=== PATIENT | female | born 1980 | race American Indian/Alaskan Native ===

== ENCOUNTER 2020-10-24 08:08 | Day surgery (SDC) | payer BC ==
[~2020-10-24 08:08] MED LIST: Albuterol 0.083% 2.5 MG/3 ML Neb Soln NEB PRN; HYDROmorphone 1 MG/ML Syringe IVPUSH PRN; Lactated Ringers 1,000 ML IV SCH; Metoclopramide 10 MG/2 ML SDV IVPUSH PRN; Morphine 2 MG/ML SYRINGE IVPUSH PRN; Naloxone 0.4 MG/ML Syringe IVPUSH PRN; Ondansetron 4 MG/2 ML SDV IVPUSH PRN; ceFAZolin 2 GM in Premix Bag 1 BAG IV ONE; fentaNYL 100 MCG/2 ML SDV IVPUSH PRN
[2020-10-24] MEDS ORDERED: Ondansetron 4 MG/2 ML SDV ONE (09:12)
[2020-10-24] MEDS ORDERED: Lidocaine 2% 5 ML SDV ONE (09:12)
[2020-10-24] MEDS ORDERED: Propofol 200 MG/20 ML SDV ONE (09:12)
[2020-10-24] MEDS ORDERED: Midazolam 1 MG/ML 2 ML SDV ONE (09:13)
[2020-10-24] MEDS ORDERED: fentaNYL 100 MCG/2 ML SDV ONE ×2 (09:13→11:14)
[2020-10-24] MEDS ORDERED: Scopolamine 1.5 MG Transdermal Patch ONE (09:25)
--- NOTE | 2020-10-24 09:29 | PCM.PREANE ---
Preanesthetic Assessment - Anesthesia/Transfusion/Family Hx Anesthesia History: Prior Anesthesia Without Reaction Family History of Anesthesia Reaction: No Transfusion History: No Prior Transfusion(s) - Review of Systems General: No Symptoms Pulmonary: No Symptoms Cardiovascular: No Symptoms Gastrointestinal: No Symptoms Neurological: No Symptoms Other: Reports: None - Physical Assessment NPO Status Date: 10/24/20 NPO Status Time: 00:00 Vital Signs: Last Vital Signs Temp 97.3 F 10/24/20 08:16 Pulse 85 10/24/20 08:16 Resp 15 10/24/20 08:16 BP 153/80 H 10/24/20 08:16 Pulse Ox 99 10/24/20 08:16 Height: 5 ft 6 in Weight: 190 lb ASA Class: 3 Mental Status: Alert & Oriented x3 Airway Class: Mallampati = 2 Dentition: Reports: Normal Dentition, Mcintire(s) Thyro-Mental Finger Breadths: 3 Mouth Opening Finger Breadths: 3 ROM/Head Extension: Full Lungs: Clear to Auscultation, Normal Respiratory Effort Cardiovascular: Regular Rate, Regular Rhythm - Lab Values: Laboratory Last Values POC Glucose 179 mg/dL (70-99) H 10/24/20 08:59 Urine HCG, Qual NEGATIVE (NEGATIVE) 10/24/20 08:20 - Allergies Allergies/Adverse Reactions: Allergies Allergy/AdvReac Type Severity Reaction Status Date / Time No Known Allergies Allergy Verified 10/22/20 10:39 - Acknowledgements Anesthesia Type Planned: General Anesthesia Pt an Appropriate Candidate for the Planned Anesthesia: Yes Alternatives and Risks of Anesthesia Discussed w Pt/Guardian: Yes Pt/Guardian Understands and Agrees with Anesthesia Plan: Yes PreAnesthesia Questionnaire HEENT History: Reports: Other (See Below) Other HEENT History: wears glasses/contacts Cardiovascular History: Reports: High Cholesterol, Hypertension Respiratory History: Reports: None Gastrointestinal History: Reports: GERD Genitourinary History: Reports: Chronic Renal Insuffiency Musculoskeletal History: Reports: None Neurological History: Reports: None Psychiatric History: Reports: None Endocrine/Metabolic History: Reports: Diabetes, Type II, Obesity/BMI 30+ Hematologic History: Reports: Iron Deficiency Immunologic History: Reports: None Oncologic (Cancer) History: Reports: None Dermatologic History: Reports: Other (See Below) Other Dermatologic History: chronic ulcer to left great toe - Past Surgical History Head Surgeries/Procedures: Reports: None HEENT Surgical History: Reports: Tonsillectomy Cardiovascular Surgical History: Reports: None Respiratory Surgical History: Reports: None GI Surgical History: Reports: Appendectomy Female Surgical History: Reports: None Endocrine Surgical History: Reports: None Neurological Surgical History: Reports: None Other Musculoskeletal Surgeries/Procedures:: right foot surgery Oncologic Surgical History: Reports: None Dermatological Surgical History: Reports: None - SUBSTANCE USE Tobacco Use Status *Q: Light Tobacco User Tobacco Use Within Last Twelve Months: Cigarettes - HOME MEDS Home Medications: Home Meds Ferrous Sulfate 325 mg PO BID 10/22/20 [History] Fish Oil/[place]-3 Fatty Acids [Fish Oil 1,000 MG] 1,000 mg PO DAILY 10/22/20 [History] Magnesium Oxide 400 mg PO DAILY 10/22/20 [History] Metoprolol Succinate [Toprol Xl] 50 mg PO DAILY 10/22/20 [History] Olmesartan Medoxomil 5 mg PO DAILY 10/22/20 [History] Omeprazole 20 mg PO DAILY 10/22/20 [History] Semaglutide [Ozempic] 0.25 mg SUBCUT WEEKLY 10/22/20 [History] atorvaSTATin Calcium [Atorvastatin Calcium] 10 mg PO DAILY 10/22/20 [History] metFORMIN HCl [Metformin HCl ER] 500 mg PO ACDINNER 10/22/20 [History] metFORMIN HCl [Metformin HCl] 1,000 mg PO ACBREAKFAST 10/22/20 [History] polyethylene glycoL 3350 [MiraLAX] 1 dose PO ASDIRECTED PRN 10/22/20 [History] - CURRENT (IN HOUSE) MEDS Current Meds: Current Medications Albuterol (Albuterol 0.083% 2.5 Mg/3 Ml Neb Soln) 2.5 mg NEB ONETIME PRN PRN Reason: Wheezing Droperidol (Droperidol 5 Mg/2 Ml Sdv) 0.625 mg IVPUSH ONETIME PRN PRN Reason: Nausea/Vomiting Fentanyl (Fentanyl 100 Mcg/2 Ml Sdv) 50 mcg IVPUSH Q5M PRN PRN Reason: Pain (mild 1-3) Hydromorphone HCl (Hydromorphone 1 Mg/Ml Syringe) 1 mg IVPUSH Q10M PRN PRN Reason: Pain (moderate 4-6) Lactated Ringer's (Ringers, Lactated) 1,000 mls @ 125 mls/hr IV ASDIRECTED MARLO Last Admin: 10/24/20 08:30 Dose: 125 mls/hr Documented by: Metoclopramide HCl (Metoclopramide 10 Mg/2 Ml Sdv) 10 mg IVPUSH ONETIME PRN PRN Reason: Nausea/Vomiting Morphine Sulfate (Morphine 2 Mg/Ml Syringe) 2 mg IVPUSH Q10M PRN PRN Reason: Pain (severe 7-10) Naloxone HCl (Naloxone 0.4 Mg/Ml Syringe) 0.1 mg IVPUSH ASDIRECTED PRN PRN Reason: Respiratory Depression Ondansetron HCl (Ondansetron 4 Mg/2 Ml Sdv) 4 mg IVPUSH ONETIME PRN PRN Reason: Nausea/Vomiting Discontinued Medications Fentanyl (Fentanyl 100 Mcg/2 Ml Sdv) Confirm Administered Dose 100 mcg .ROUTE .STK-MED ONE Stop: 10/24/20 09:14 Cefazolin Sodium/Dextrose 2 gm (/ Premix) 50 mls @ 100 mls/hr IV ONETIME ONE Stop: 10/23/20 23:18 Lidocaine (Lidocaine 2% 5 Ml Sdv) Confirm Administered Dose 5 ml .ROUTE .STK-MED ONE Stop: 10/24/20 09:13 Midazolam HCl (Midazolam 1 Mg/Ml 2 Ml Sdv) Confirm Administered Dose 2 mg .ROUTE .STK-MED ONE Stop: 10/24/20 09:14 Ondansetron HCl (Ondansetron 4 Mg/2 Ml Sdv) Confirm Administered Dose 4 mg .ROUTE .STK-MED ONE Stop: 10/24/20 09:13 Propofol (Propofol 200 Mg/20 Ml Sdv) Confirm Administered Dose 200 mg .ROUTE .STK-MED ONE Stop: 10/24/20 09:13 Scopolamine (Scopolamine 1.5 Mg Transdermal Patch) Confirm Administered Dose 1.5 mg .ROUTE .STK-MED ONE Stop: 10/24/20 09:26
[2020-10-24] MEDS ORDERED: Bupivacaine 25%/EPINEPHrine/PF 30 ML ONE (10:12)
[2020-10-24] MEDS ORDERED: ceFAZolin 1 GM Vial ONE (10:48)
[2020-10-24] MEDS ORDERED: Bupivacaine 0.5% 30 ML SDV ONE (11:02)
[2020-10-24] MEDS ORDERED: ePHEDrine 50 MG/ML SDV ONE (11:21)
[2020-10-24] MEDS ORDERED: Sodium Chloride 0.9% 20 ML ONE (11:21)
--- NOTE | 2020-10-24 12:30 | PCM48HPAN ---
Post Anesthesia Note - EVALUATION WITHIN 48HRS OF ANESTHETIC Vital Signs in Normal Range: Yes Patient Participated in Evaluation: Yes Respiratory Function Stable: Yes Airway Patent: Yes Cardiovascular Function Stable: Yes Hydration Status Stable: Yes Pain Control Satisfactory: Yes Nausea and Vomiting Control Satisfactory: Yes Mental Status Recovered: Yes Vital Signs: Last Vital Signs Temp 97.3 F 10/24/20 12:20 Pulse 75 10/24/20 12:25 Resp 26 H 10/24/20 12:25 BP 137/72 10/24/20 12:25 Pulse Ox 96 10/24/20 12:25
--- NOTE | 2020-10-24 12:30 | PCM.POSTAN ---
POST ANESTHESIA ASSESSMENT - MENTAL STATUS Mental Status: Somnolent - VITAL SIGNS Vital Signs: Last Vital Signs Temp 97.3 F 10/24/20 12:20 Pulse 75 10/24/20 12:25 Resp 26 H 10/24/20 12:25 BP 137/72 10/24/20 12:25 Pulse Ox 96 10/24/20 12:25 - RESPIRATORY Respiratory Status: Respiratory Rate WNL, Airway Patent, O2 Saturation Stable - CARDIOVASCULAR CV Status: Pulse Rate WNL, Blood Pressure Stable - GASTROINTESTINAL GI Status: No Symptoms - POST OP HYDRATION Hydration Status: Adequate & Stable
--- NOTE | 2020-10-24 12:48 | PN ---
PREOPERATIVE PROGRESS NOTE: DATE OF SURGERY: October 24, 2020. PLANNED PROCEDURE: Excision of accessory bone, left great toe. ALLERGIES: The patient has no allergies. PAST MEDICAL HISTORY: Significant for asthma, essential hypertension, type 2 diabetes mellitus, and dyslipidemia. MEDICATIONS: Atorvastatin 10 mg 1 tablet daily, ferrous sulfate 325 mg before meals 1 tablet by mouth twice a day for iron, fish oil 1000 mg 1 tablet daily, magnesium oxide 400 mg 1 tablet daily, metformin hydrochloride 500 mg 2 tablets by mouth daily, metoprolol 1 tablet daily and that is 50 mg, olmesartan 5 mg 1 tablet daily, omeprazole 20 mg daily, Ozempic inject 0.25/0.5 mg under the skin with 0.25 mg weekly, and polyethylene glycol 3350 powder dissolve 17 g mixed in 8 ounces of water and drink daily. Labs including BMP, CBC, PT, INR unremarkable. The patient was cleared for surgery by Dr. Ben Harris. No contraindications to surgery noted. The patient has provided written consent for the planned procedure. All risks and benefits have been discussed. No guarantees expressed or implied. ROJELIO AREVALO /[id number] MTDEliezer
--- NOTE | 2020-10-24 19:09 | PCM.OPNOTE ---
- General Post-Op/Procedure Note Date of Surgery/Procedure: 10/24/20 Operative Procedure(s): excision of accessory bone left great toe Findings: consistent with diagnosis Pre Op Diagnosis: accessory bone left great toe Post-Op Diagnosis: accessory bone left great toe Anesthesia Technique: General LMA Primary Surgeon: Deni Culver Pathology: fragments of accessory bone left great toe EBL in mLs: 5 Complications: none Condition: Good Free Text/Narrative:: Intake & Output 10/24/20 10/24/20 10/24/20 06:59 14:59 22:59 Intake Total 1050 Balance 1050 materials: 4-0 vicryl 2-0 prolene injectables: 5 ml 0.5% marcaine plain
--- NOTE | 2020-10-24 22:58 | OR ---
SURGEON: Deni Culevr DPM DATE OF PROCEDURE: 10/24/2020 PREOPERATIVE DIAGNOSIS: Accessory bone, left great toe. POSTOPERATIVE DIAGNOSIS: Accessory bone, left great toe. OPERATIVE PROCEDURE: Excision of accessory bone, left great toe. FINDINGS: Consistent with diagnosis. ANESTHESIA: General LMA. PATHOLOGY: Fragments of accessory bone, left great toe. HEMOSTASIS: Above-ankle pneumatic tourniquet inflated to a pressure of 250 mmHg. ESTIMATED BLOOD LOSS: 5 mL. INJECTABLES: 5 mL of 0.5% Marcaine plain. COMPLICATIONS: None. CONDITION: The patient tolerated the procedure and anesthesia well with no complications noted and there was a prompt hyperemic response to all toes of the left foot following deflation of the tourniquet. MATERIALS: 4-0 Vicryl, 2-0 Prolene. JUSTIFICATION FOR PROCEDURE: The patient is a well-established patient of [facility] with a long history of diabetic foot complications and has become a well-controlled diabetic overall in the last 2 years. Despite this, she has developed an ulcer on the plantar aspect of her left great toe. Further investigation revealed an accessory bone in the plantar interphalangeal joint area of the left great toe, which correlates exactly with the location of the ulcer she developed and has failed to heal despite periods of nonweightbearing and offloading through various means; therefore, patient was recommended by me and agreed to the surgical option of excising this accessory bone. All patient questions have been asked and answered. Risks and benefits were thoroughly discussed and no guarantees expressed or implied. Written consent was obtained from the patient for the procedure. PROCEDURE IN DETAIL: The patient was brought to the operating room, placed on the operating table in supine position, at which time an aseptic scrub and drape was performed about the patient's left foot. Time-out was performed with everyone present agreeing that the planned procedures and marked foot were correct. Preoperative x-rays were taken documenting the location of the accessory bone on the left great toe. The procedure began with shaving of callus formation that had toughened up the skin on the plantar aspect of the left great toe. Following this, incision was planned and made in a linear fashion on the plantar aspect of the toe approximately 2 cm midline plantar to the interphalangeal joint. The incision was deepened with careful dissection and protecting of the flexor tendon, and the accessory bone was located and was removed in several pieces, which were placed in a sterile specimen cup to be sent to pathology for gross examination. The area was flushed with copious amounts of normal sterile saline. Intraoperative x-ray was utilized as needed throughout the procedure. Postoperative x-rays were taken verifying the successful removal of the offending accessory bone. After flushing the site again, layered closure was performed. Portions of the flexor tendon that had to be incised in order to access the accessory bone were then repaired with 4-0 Vicryl, as was the deep tissue and subcutaneous layers, which were reapproximated with 4-0 Vicryl. 2-0 Prolene was used to reapproximate the superficial skin on the plantar aspect of the left great toe. The tourniquet was deflated at a time of 59 minutes prior to the skin being reapproximated. Prompt hyperemic response was noted to all digits of the left foot. 5 mL of 0.5% Marcaine plain was infiltrated about the surgical site and layered dressings were applied consisting of Betadine-soaked Xeroform gauze, 4 x 4 fluff gauze, Kerlix roll, and the dressings were secured with an Dex bandage. The patient having tolerated the procedure well and the anesthesia well was transported to recovery room and then was discharged home with written and oral instructions having been given and she will be following up with me when I visit the [facility] in [place] in 6 days' time. ROJELIO / MICKEY /[id number] MTDEliezer
--- NOTE | 2020-10-26 12:43 | CR ---
INDICATION: Left 1st toe accessory bone TECHNIQUE: Intraoperative C-arm fluoroscopy. IMPRESSION: Intraoperative C-arm fluoroscopy was provided. Fluoroscopy time 29.8 seconds. Seven images were captured. Dictated by Chuy Patel MD @ 10/26/2020 12:42:[address] Chuy Patel @ Oct 26 2020 12:42PM
== END 2020-10-24 13:35 | disposition home or self-care (01) ==
LOC: MW.SDS 08:08
PROVIDERS: ATTEND Podiatrist Foot & Ankle Surgery
DX: Q74.2 Other congenital malformations of lower limb(s), including pelvic girdle (principal); E11.9 Type 2 diabetes mellitus without complications; I10 Essential (primary) hypertension; F17.210 Nicotine dependence, cigarettes, uncomplicated; J45.909 Unspecified asthma, uncomplicated; E78.00 Pure hypercholesterolemia, unspecified; Z79.899 Other long term (current) drug therapy; Z79.84 Long term (current) use of oral hypoglycemic drugs; E66.9 Obesity, unspecified; Z68.30 Body mass index [BMI] 30.0-30.9, adult
CPT/HCPCS: 28315; 76000; 81025; 82947; 88305; 88311; J0690; J2250; J2405; J2704; J3010; J3490; J7120; 01480